=== PATIENT | male | born 1995 | race American Indian/Alaskan Native ===

== ENCOUNTER 2018-03-10 00:29 | Emergency (ER) | payer BC, OTHER ==
[2018-03-10 00:29] VITALS: BMI 22.6
[2018-03-10 00:44] VITALS: BP 132/79; PULSE 84; RESP 18; TEMP 98.9; O2SAT 99
[2018-03-10] MEDS ORDERED: cefTRIAXone (Rocephin) 250 mg Inj IM STA (01:07)
--- NOTE | 2018-03-10 01:16 | C.PDOC ---
History Of Present Illness 22 year old male presents to the ER with a complaint of penile discharge for the past 2 days. Patient reports having unprotected sex, claims to have only one partner. Denies abdominal pain, penile pain, or testicular pain. Time Seen by Provider: 03/10/18 00:55 Chief Complaint (Nursing): Male Genitourinary History Per: Patient History/Exam Limitations: no limitations Onset/Duration Of Symptoms: Days Current Symptoms Are (Timing): Still Present Associated Symptoms: Other ((+) Penile discharge (-) Abdominal pain, penile pain , testicular pain.) Alleviating Factors: None Recent travel outside of the [place]: No Past Medical History Reviewed: Historical Data, Nursing Documentation, Vital Signs Vital Signs: Last Vital Signs Temp 98.9 F 03/10/18 00:42 Pulse 84 03/10/18 00:42 Resp 18 03/10/18 00:42 BP 132/79 03/10/18 00:42 Pulse Ox 99 03/10/18 02:44 - Medical History PMH: Seizures Surgical History: Tonsillectomy - [facility] APPLICATION OF SPLINT (05/12/13) CLOSURE SKIN & SUBCUTANEOUS NEC (10/25/06) Family History: States: Unknown Family Hx - Social History Hx Tobacco Use: No Hx Alcohol Use: No Hx Substance Use: Yes - Immunization History Hx Tetanus Toxoid Vaccination: No Hx Influenza Vaccination: No Hx Pneumococcal Vaccination: No Review Of Systems Constitutional: Negative for: Fever, Chills Gastrointestinal: Negative for: Abdominal Pain Genitourinary: Positive for: Penile Discharge. Negative for: Scrotal Pain, Penile Pain Physical Exam - Physical Exam Appears: Non-toxic Skin: Normal Color, Warm, Dry Head: Atraumatic, Normacephalic Eye(s): bilateral: Normal Inspection Gastrointestinal/Abdominal: Soft, No Tenderness Male Genital: No Testicular Tenderness, No Testicular Swelling, No Scrotal Swelling, Other (Whitish discharge at urethra, no lesions) Neurological/Psych: Oriented x3, Normal Speech ED Course And Treatment O2 Sat by Pulse Oximetry: 99 (Room air) Pulse Ox Interpretation: Normal Progress Note: GC/Chlamydia sent, rocephin and zithromax administered. Patient advised to follow up in clinic or STD clinic for further evaluation and testing. Disposition - Disposition Referrals: Non [facility] Provider, [Primary Care Provider] - Disposition: HOME/ ROUTINE Disposition Time: 01:10 Condition: STABLE Additional Instructions: Please follow up with PMD Use protection Follow up with STD clinic Return to ER if worse Forms: [facility] (Finnish) - Clinical Impression Clinical Impression: Urethritis, nonspecific - PA / [employer] ADMINISTRATOR / Resident Statement MD/DO has reviewed & agrees with the documentation as recorded. - Scribe Statement The provider has reviewed the documentation as recorded by the Scribe Jac Almonte All medical record entries made by the Scribe were at my direction and personally dictated by me. I have reviewed the chart and agree that the record accurately reflects my personal performance of the history, physical exam, medical decision making, and the department course for this patient. I have also personally directed, reviewed, and agree with the discharge instructions and disposition.
== END 2018-03-10 01:55 | disposition home or self-care (01) ==
LOC: SUPCPDRO 00:29 → C.ER 00:29
DX: N34.2 Other urethritis (principal)
CPT/HCPCS: 87491; 87591; 96372; 99283; J0696